=== PATIENT | female | born 1990 | race Caucasian/White ===

== ENCOUNTER 2017-09-28 14:25 | Outpatient (CLI) | payer MEDICAID, SELFPAY ==
[2017-09-28 15:11] VITALS: BMI 34.7
[2017-09-28 15:13] LABS: Color, Urine Yellow (Yellow); Glucose, Dipstick Normal (Normal); Ketone-Dipstick Negative (Negative); Leukocyte Esterase-Dipstick 100 /ul (Negative); Nitrite-Dipstick Negative (Negative); Occult Blood-Urine Negative /ul (Negative); Protein-Dipstick Negative (Negative); Specific Gravity, Urine 1.005 (1.002-1.030); Urine Bilirubin Dipstick Negative (Negative); Urine Clarity Sl. Cloudy (Clear); Urine Urobilinogen Normal (Normal)
--- NOTE | 2017-09-28 23:09 | OB.TRI.NOTE ---
History of Present Illness Date of Service: 09/28/17 Was patient seen by the physician?: No Reason For Visit: R/O LABOR Date of Service: 09/28/17 Final MARTY: 09/30/17 Gestational age: 39 Weeks and 5 Days Home Medications Medication Instructions Recorded Iron 1 tab PO DAILY 09/28/17 Vits [Prenatabs FA ] 1 tab PO DAILY 09/28/17 Allergies No Known Allergies Allergy (Verified 09/28/17 15:44) NST - FHR Rate Baby A Baseline: 125 Variability:: Moderate Accelerations:: 15 x 15 Decelerations:: None NST Reactive:: Yes FHR Category:: Category I Uterine Activity:: irregular Impression/Plan @ 39.5 wks, false labor dc home
== END 2017-09-28 15:55 | disposition home or self-care (01) ==
LOC: WPOUT 14:53 → WP 14:54
PROVIDERS: Visit Provider Obstetrics & Gynecology
DX: O47.1 False labor at or after 37 completed weeks of gestation (principal); Z3A.39 39 weeks gestation of pregnancy
CPT/HCPCS: 59025; 59050; 81002; 99218; G0378

== ENCOUNTER 2017-10-06 14:08 | Inpatient (IN) | payer MEDICAID, SELFPAY ==
[2017-10-06 12:24] VITALS: BMI 34.9
[2017-10-06] MEDS: Lactated Ringers 1,000 ML 50 ML IV ×2 (14:25→16:15)
[2017-10-06 14:39] LABS: Hematocrit 29.5 % (37-47); Hemoglobin 9.7 g/dl (12.0-15.0); Mean Corp Hgb Conc 32.9 g/gl (32-36); Mean Corpuscular Hgb 28.4 pg (27.0-32.0); Mean Corpuscular Volume 86.5 fL (81-99); Mean Platelet Vol. 9.3 fl (6.2-12.0); Platelet Count 318 K/mm3 (150-450); RBC Distribution Width CV 13.4 % (11.6-14.6); RBC Distribution Width SD 40.7 fl (35.1-43.9); Red Blood Count 3.41 M/mm3 (4.2-5.4); White Blood Count 13.2 K/mm3 (4.4-11.0)
[2017-10-06 14:43] LABS: Scan Indicated on CBC? Y/N NO
[2017-10-06] MEDS: fentaNYL-bupivacaine (epidural) 100 ML BAG EPIDURAL (16:22)
--- NOTE | 2017-10-06 18:13 | HP.PCM_ITS ---
History Date of Admission: 10/06/17 Final MARTY: 09/30/17 Final MARTY Source: LMP Gestational age: 40 Weeks and 6 Days History of this : 27-year-old 3 para 2 female who presents at 40-6/7 weeks gestation complaining contractions that increased in severity since 3:30 AM. She states they are getting more consistent and more intense. She is also had some mucousy discharge with a slight blood-tinged. No gross vaginal bleeding or leaking of fluid. She has had good movement. This has been complicated to date by first visit was at 15 weeks and she has had antepartum anemia. She had a positive urinary tox screen for cannabinoids in her urine early in the . Past medical history is significant for ADHD, anxiety and depression, antepartum iron deficiency anemia, history of Chlamydia remotely in 2008 Past surgical history: [place] tooth extraction Obstetrical history: 2 previous spontaneous vaginal deliveries without complications of AGA neonates Allergies No Known Allergies Allergy (Verified 09/28/17 15:44) Home Medications: Home Medications Iron 1 tab PO DAILY 09/28/17 Vits [Prenatabs FA ] 1 tab PO DAILY 09/28/17 Smoking Status: Former smoker Alcohol: None Substance Use Type: Marijuana Number of Fetus(es): 1 History Past Pregnancies: Past Pregnancies Delivery Date Name GA/Weeks Outcome Route Weight Infant Gender Labor Length Anesthesia Delivery Location Provider FOB Expected Delivery Method: Spontaneous Vaginal Review of Systems Constitutional: Denies: Anorexia, Chills, Fever Cardiovascular: Denies: Chest Pain Respiratory: Denies: Shortness of Breath Skin: Denies: Rash Physical Exam General: Alert, Cooperative, No apparent distress Cardiovascular: Regular Rhythm Lungs: Normal air movement Abdomen: Soft, Non Tender, Non-Distended, Gravid Extremities:: Other - edema 1+ Estimated gestational size: Appropriate for gestational size Presentation: Cephalic Cervix Dilation (cm): 7 Station: -1 Effacement (%): 80 Assessment/Plan 27-year-old 3 para 2 female in labor. 40-6/7 weeks. Estimated weight is less than 5000 g and pelvis is clinically adequate to expect vaginal delivery. May have Nubain, nitrous oxide or epidural as needed for pain control. Pitocin augmentation if necessary. Had a positive tox screen for marijuana in the first trimester. Would recommend repeat tox screen.
[2017-10-06] MEDS: Oxytocin 30 units/NS 500 ml 30 UNITS/500 ML IV.SOLN 334 UNITS IV (19:01)
--- NOTE | 2017-10-06 19:10 | PCM.OB.VAG ---
Vaginal Delivery Maternal Presentation: Active Labor Amniotic Membrane Rupture Type: Artificial Amniotic Fluid Description: Clear Final MARTY: 09/30/17 Final MARTY Source: LMP Gestational age: 40 Weeks and 6 Days Date of Procedure: 10/06/17 Pre-Operative Diagnosis: labor Post-Operative Diagnosis: same Surgery/ Procedure Performed: Spontaneous Vaginal Delivery Type of Anesthesia: Epidural Description of Procedure: A vigorous female infant was delivered WILTON over an intact perineum. The remainder the was delivered with maternal pushing and gentle traction only in less than 15 seconds. The Pitocin infusion was initiated for active management of the third stage. The cord was clamped and cut after 1 minute. The infant was attended to by the waiting nursing staff. The placenta was delivered spontaneously and intact. The cervix and vagina were intact. Sponge and needle counts were correct. A vaginal sweep was completed by me. Presentation: WILTON Placental Delivery Description: Spontaneous Placenta Disposition: [facility] Cord Vessel Description: 3 Vessels Cord Entanglement: None Drain: Carey to straight drain Estimated Blood Loss: 200 A gender: Female Episiotomy Description: None Laceration: None Medications given after delivery: IV Pitocin Complications: None
[2017-10-06] MEDS: Oxytocin 30 units/NS 500 ml 30 UNITS/500 ML IV.SOLN 167 UNITS IV (19:31)
[2017-10-06] MEDS: Acetaminophen 500 MG Tablet 1000 MG PO (20:06)
[2017-10-06] MEDS: 0.9% Saline Lock 10 ML Syringe IV (20:35)
[2017-10-06 21:10] VITALS: BP 106/68; PULSE 93; RESP 16; TEMP 37
--- NOTE | 2017-10-06 22:19 | PCM.DCVAG ---
Discharge Diet: No Restrictions Discharge Activity: Return to Normal Activity, May not drive while taking narcotic pain medications., May Shower May resume sexual activity in: 4-6 weeks Additional Activity Instructions:: Nothing in the vagina for 4-6 weeks. You may return to work/school in 6 weeks. Call your doctor if your incision/area has: Continuous Slow Oozing, Sudden Increased Bleeding, Increased Pain/ Swelling, Increased Redness, Foul Smelling Discharge Additional Instructions: If you experience any of the following, contact your healthcare provider. Bleeding that soaks a pad every hour for 2 hours Fever 100.4 or higher Unrelieved incision or abdominal pain Swelling, redness, discharge or bleeding from your incision or episiotomy site Your incision begins to separate Problems urinating (including inability to urinate or burning while urinating). Visual changes Severe headache Flu-like symptoms Pain or redness in one of both of your breasts Pain, warmth, tenderness or swelling in your legs, especially the calf area Frequent nausea and vomiting Symptoms of depression or anxiety If you experience any of the following, call 911 or go to the nearest Emergency Room. Chest pain Problems breathing Seizure activity Partial or complete paralysis of a body part, slurred speech, weakness or drooping of the face, or a sudden inability to walk or hold your balance Allergies/Adverse Reactions: Allergies No Known Allergies Allergy (Verified 09/28/17 15:44) Medications to take at Discharge Iron 1 tab PO DAILY 09/28/17 Vits [Prenatabs FA ] 1 tab PO DAILY 09/28/17 Ibuprofen [Motrin] 600 mg PO Q6H PRN #60 tab 10/06/17 The following prescriptions were given: Ibuprofen [Motrin] 600 mg PO Q6H PRN #60 tab PRN Reason: Pain Please Follow Up With: Chastity Gong MD - [phone] When: Call to make an appointment with your doctor's office in 6 weeks or as needed. If you had elevated Blood Pressure or 4th degree laceration you will need to be seen in 2 weeks. Primary Care Physician: Carlos Qureshi,Out of [Primary Care Provider] -
--- NOTE | 2017-10-06 22:20 | DCINST_ITS ---
Discharge Diet: No Restrictions Discharge Activity: Return to Normal Activity, May not drive while taking narcotic pain medications., May Shower May resume sexual activity in: 4-6 weeks Additional Activity Instructions:: Nothing in the vagina for 4-6 weeks. You may return to work/school in 6 weeks. Call your doctor if your incision/area has: Continuous Slow Oozing, Sudden Increased Bleeding, Increased Pain/ Swelling, Increased Redness, Foul Smelling Discharge Additional Instructions: If you experience any of the following, contact your healthcare provider. * Bleeding that soaks a pad every hour for 2 hours * Fever 100.4 or higher * Unrelieved incision or abdominal pain * Swelling, redness, discharge or bleeding from your incision or episiotomy site * Your incision begins to separate * Problems urinating (including inability to urinate or burning while urinating) . * Visual changes * Severe headache * Flu-like symptoms * Pain or redness in one of both of your breasts * Pain, warmth, tenderness or swelling in your legs, especially the calf area * Frequent nausea and vomiting * Symptoms of depression or anxiety If you experience any of the following, call 911 or go to the nearest Emergency Room. * Chest pain * Problems breathing * Seizure activity * Partial or complete paralysis of a body part, slurred speech, weakness or drooping of the face, or a sudden inability to walk or hold your balance Allergies/Adverse Reactions: Allergies No Known Allergies Allergy (Verified 09/28/17 15:44) Medications to take at Discharge Iron 1 tab PO DAILY 09/28/17 Vits [Prenatabs FA ] 1 tab PO DAILY 09/28/17 Ibuprofen [Motrin] 600 mg PO Q6H PRN #60 tab 10/06/17 The following prescriptions were given: Ibuprofen [Motrin] 600 mg PO Q6H PRN #60 tab PRN Reason: Pain Please Follow Up With: Chastity Gong MD - [phone] When: Call to make an appointment with your doctor's office in 6 weeks or as needed. If you had elevated Blood Pressure or 4th degree laceration you will need to be seen in 2 weeks. Primary Care Physician: [facility] ,Out of [Primary Care Provider] -
[2017-10-07 00:10] VITALS: BP 103/57; PULSE 81; RESP 18; TEMP 36.7
[2017-10-07] MEDS: Naproxen 250 MG Tablet PO ×2 (00:49→12:19)
[2017-10-07 04:25] VITALS: BP 102/62; PULSE 85; RESP 16; TEMP 36.3
[2017-10-07 07:49] VITALS: BP 111/68; PULSE 74; RESP 16; TEMP 36.4
--- NOTE | 2017-10-07 08:19 | PCM.PN.OB ---
Subjective: pain well controlled, average lochia, no N/V - Physical Exam General: Alert, Cooperative, No apparent distress Vital Signs Temp Pulse Resp BP 97.6 F L 74 16 111/68 10/07/17 07:49 10/07/17 07:49 10/07/17 07:49 10/07/17 07:49 Oxygen Delivery Method Room Air Weight: 89.4 kg Body Mass Index (BMI) 34.9 Intake and Output for Last 24 Hours 10/05/17 10/06/17 10/07/17 23:59 23:59 23:59 Output Total 400 / 400 300 / 300 Balance -400 / -400 -300 / -300 Laboratory Tests Past 24 Hrs 10/06/17 10/06/17 14:25 14:25 WBC 13.2 H RBC 3.41 L Hgb 9.7 L Hct 29.5 L MCV 86.5 MCH 28.4 MCHC 32.9 RDW 13.4 RDW Differential 40.7 Plt Count 318 MPV 9.3 Blood Type O POSITIVE Antibody Screen NEGATIVE Medical Necessity - Tobacco Use Smoking Status: Former smoker Assessment/Plan PPD#1 doing well routine care possible d/c home later today
[2017-10-07 12:00] VITALS: BP 118/77; PULSE 80; RESP 18; TEMP 36.4
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
[2017-10-07 18:03] VITALS: BP 117/72; PULSE 77; RESP 18; TEMP 36.8
[2017-10-07] MEDS: Acetaminophen 500 MG Tablet 1000 MG PO (20:12)
[2017-10-07 20:43] VITALS: BP 128/78; PULSE 75; RESP 18; TEMP 36.4; O2SAT 97
--- NOTE | 2017-10-08 09:44 | CASEMGMT ---
Social Work Note Labor and Delivery Unit Faxed nurse visit referral form to [facility] at [phone]. MOB stated consent for referral prior to discharging home. No other services requested or indicated other than monitoring for meconium drug screen results. MOB and baby discharged home on 10-07-17. -MICHAEL Boggs, BUSINESS OBJECTS CONSULTANT
== END 2017-10-07 21:30 | disposition home or self-care (01) | DRG 373 ==
LOC: WPOUT 14:09 → WP 19:05
PROVIDERS: Admitting Provider Obstetrics & Gynecology; Visit Provider Obstetrics & Gynecology
DX: O99.013 Anemia complicating pregnancy, third trimester (principal); O99.323 Drug use complicating pregnancy, third trimester; D50.9 Iron deficiency anemia, unspecified; F12.90 Cannabis use, unspecified, uncomplicated; Z3A.40 40 weeks gestation of pregnancy; Z37.0 Single live birth; Z87.891 Personal history of nicotine dependence
CPT/HCPCS: 59025; 59050; 85027; 86850; 86900; 99218; J7120; A4216; G0378